=== PATIENT | male | born 1965 | race African-American/Black ===

== ENCOUNTER → 2018-08-04 | Outpatient (CLI) | payer BC | LOC: RAD 10:31 | DX: K44.9 Diaphragmatic hernia without obstruction or gangrene (principal); R13.10 Dysphagia, unspecified ==

== ENCOUNTER → 2021-01-10 | Outpatient (CLI) | payer BC | LOC: CAT 14:02 | PROVIDERS: ATTEND Nurse Practitioner | DX: K57.30 Diverticulosis of large intestine without perforation or abscess without bleeding (principal); K42.9 Umbilical hernia without obstruction or gangrene ==